=== PATIENT | male | born 1995 | race Caucasian/White ===

== ENCOUNTER 2019-03-19 18:20 | Emergency (ER) | payer OTHER ==
[~2019-03-19] VITALS: Ht 170.2 cm; Wt 72.6 kg
[~2019-03-19 18:20] MED LIST: ACETAMINOPHEN-1 EAC1 PO; CLEOCIN HCL150 MG PO; HYDROCODON-ACE1 EACH PO; NOHOMEMEDICATIONS
[2019-03-19 18:42] VITALS: BP 153/97
== END 2019-03-19 18:44 | disposition home or self-care (01) ==
LOC: M.ERS 18:20
DX: R06.02 Shortness of breath (principal); R05 Cough

== ENCOUNTER 2019-04-24 20:16 | Emergency (ER) | payer OTHER ==
[~2019-04-24] VITALS: Ht 170.2 cm; Wt 72.6 kg
[2019-04-24] MEDS ORDERED: NAPROSYN500 MG PO (21:25)
[2019-04-24 22:05] VITALS: BP 136/70
== END 2019-04-24 22:06 | disposition home or self-care (01) ==
LOC: M.ERS 20:16
DX: S93.491A Sprain of other ligament of right ankle, initial encounter (principal); X50.1XXA Overexertion from prolonged static or awkward postures, initial encounter; Y93.89 Activity, other specified; Y92.89 Other specified places as the place of occurrence of the external cause; Y99.8 Other external cause status

== ENCOUNTER 2019-04-29 19:32 | Emergency (ER) | payer OTHER ==
[~2019-04-29] VITALS: Ht 170.2 cm; Wt 72.6 kg
[~2019-04-29 19:32] MED LIST changes: +NAPROSYN500 MG PO
[2019-04-29 20:23] VITALS: BP 125/80
== END 2019-04-29 20:24 | disposition home or self-care (01) ==
LOC: M.ERS 19:32
DX: S93.491A Sprain of other ligament of right ankle, initial encounter (principal); X58.XXXA Exposure to other specified factors, initial encounter; Y92.89 Other specified places as the place of occurrence of the external cause; Y93.89 Activity, other specified; Y99.8 Other external cause status